=== PATIENT | female | born 2005 | race Caucasian/White ===

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

== ENCOUNTER 2024-11-15 09:45 | Outpatient (CLI) | payer OTHER, SELFPAY ==
[2024-11-15 10:15] LABS: Hematocrit 40.6 % (36-47); Hemoglobin 12.90 g/dL (12.4-14.8); Mean Corpuscular HGB Conc 31.8 g/dL (30-55); Mean Corpuscular Hemoglobin 26.9 pg (27-33); Mean Corpuscular Volume 84.8 fl (85-98); Platelet Count 255 10^3/cmm (157-399); Red Blood Count 4.79 10^6/uL (3.85-5.65); White Blood Count 6.23 10^3/uL (4.5-13.0)
[2024-11-15 10:42] LABS: Estmated Average Glucose 103; Hemoglobin A1C 5.2 % (4.0-6.0)
[2024-11-15 10:43] LABS: Alanine Aminotransferase 14 U/L (0-33); Albumin Level 4.9 g/dL (3.5-5.2); Alkaline Phosphatase 108 U/L (35-105); Anion Gap 16.2 (5-19); Aspartate Amino Transferase 17 U/L (0-32); Blood Urea Nitrogen 10 mg/dL (6-20); Calcium 9.8 mg/dL (8.5-10.5); Carbon Dioxide 24 mmol/L (22-29); Chloride 102 mmol/L (98-107); Cholesterol 148 mg/dL (0-200); Free T4 Free Thyroxine 1.06 ng/dL (0.93-1.60); Globulin 3.4 g/dL (1.3-4.6); Glucose 88 mg/dL (65-115); HDL Cholesterol 55 mg/dL (60-100); Osmolality Calculated 284 mOsm/kg (285-295); Potassium 4.2 mmol/L (3.5-5.1); Sodium 138 mmol/L (136-145); Thyroid Stimulating Hormone 2.16 uIU/mL (0.27-4.20); Total Protein 8.3 g/dL (6.6-8.7); Triglycerides 99 mg/dL (0-150)
[2024-11-15 10:44] LABS: Absolute Segmented Neutrophil 2.9 10/cmm (1.6-7.1); Atypical Lymphs 0.0 % (0-5); Band Neutrophils Absolute 0.0 10^3/cmm (0.0-1.2); Total Cells Counted 100 (0-100)
[2024-11-15 11:12] LABS: Follicle Stimulating Hormone 7.7 mIU/mL
[2024-11-17 13:44] LABS: Insulin ( Reference Lab Test) 8.2 uIU/mL
== END 2024-11-15 09:46 | disposition home or self-care (01) ==
LOC: LAB 09:50
PROVIDERS: PCP Nurse Practitioner; Visit Provider Nurse Practitioner Family
DX: Z01.89 Encounter for other specified special examinations (principal)
CPT/HCPCS: 36415; 80053; 80061; 82670; 83001; 83002; 83036; 83525; 84144; 84403; 84439; 84443; 84681; 85007; 85027

== ENCOUNTER 2024-11-20 17:19 | Outpatient (CLI) | payer OTHER, SELFPAY | END 2024-11-20 17:20 | disposition home or self-care (01) | LOC: LAB 17:22 | PROVIDERS: PCP Nurse Practitioner Family; Visit Provider Nurse Practitioner Family | DX: E28.2 Polycystic ovarian syndrome (principal); N97.9 Female infertility, unspecified; N92.6 Irregular menstruation, unspecified; L70.0 Acne vulgaris | CPT/HCPCS: 83002 ==